=== PATIENT | male | born 1980 | race African-American/Black ===

== ENCOUNTER 2017-12-25 19:03 | Emergency (ER) | payer SELFPAY ==
[2017-12-25] MEDS ORDERED: DEXAMETHASONE SOD PHOS INJ 10 MG/1 ML VIAL IM ONE (19:27)
[2017-12-25] MEDS ORDERED: KETOROLAC TROMETHAMINE INJ/PF 30 MG/1 ML SDV IM ONE (19:27)
[2017-12-25] MEDS ORDERED: DIAZEPAM INJ 10 MG/2 ML DISP.SYRIN IM ONE (19:27)
--- NOTE | 2017-12-25 19:34 | ER Document Report ---
HPI - HPI Pain Level: 3 Notes: Patient is a 37-year-old male with no significant past medical history who presents to the ED complaining of left lower back pain times 2 days. Patient states that he feels like his back is tightened up and swollen the left lower side. Patient states that he did go to 2 days ago, but they did not tell a much of anything and sent him home with muscle relaxers. Patient states that he did have an x-ray at that time which was negative. 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 He has not had any injections or procedures to his back. Denies any IV drug use. He is eating and drinking without any difficulties. He is urinating normally and having normal bowel movements. Denies any drug allergies. Denies any headache , fever, head injury, neck pain, changes in vision/speech/mentation/hearing, URI , sore throat, chest pain, palpitations, syncope, cough, shortness of breath, wheeze, dyspnea, abdominal pain, nausea/vomiting/diarrhea, urinary retention, dysuria, hematuria, loss of control of bowel or bladder, numbness/tingling, saddle anesthesia, muscle paralysis/weakness, or rash. - ROS Systems Reviewed and Negative: Yes All other systems reviewed and negative Past Medical History - Social History Smoking Status: Current Every Day Smoker Family History: Reviewed & Not Pertinent Vertical Provider Document - CONSTITUTIONAL Agree With Documented VS: Yes Notes: PHYSICAL EXAMINATION: GENERAL: Well-appearing, well-nourished and in no acute distress. LUNGS: Breath sounds clear to auscultation bilaterally and equal. No wheezes rales or rhonchi. HEART: Regular rate and rhythm without murmurs, rubs, gallops. ABDOMEN: Soft, nontender, nondistended abdomen. No guarding, no rebound. No masses appreciated. Normal bowel sounds present. No CVA tenderness bilaterally. No pulsatile mass Musculoskeletal: LE's b/l: FROM to passive/active. Strength 5+/5. No deficits noted. No bony tenderness of extremities. Back: FROM to passive/active. Strength 5+/5. No vertebral point tenderness, stepoffs, or deformities. I was able to percuss the L-spine without any tenderness noted. No other bony tenderness, erythema, swelling, or ecchymosis. SLR negative b/l. + tenderness to the Lt L-paraspinal mm, correlates with pain described. + moderate spasming noted Lt L-paraspinal mm, correlates with pain described. No SI jt tenderness. No foot drop Extremities: No cyanosis, clubbing, or edema b/l. Peripheral pulses 2+. Capillary refill less than 2 seconds. NEUROLOGICAL: Normal speech, normal gait. Normal sensory, motor exams. Reflexes 2+ b/l. PSYCH: Normal mood, normal affect. SKIN: Warm, Dry, normal turgor, no rashes or lesions noted. - INFECTION CONTROL TRAVEL OUTSIDE OF THE [place] IN LAST 30 DAYS: No Course - Re-evaluation Re-evalutation: 12/25/17 19:31 Patient is an afebrile, well-hydrated, 37-year-old male who presents to the ED with left lower back pain and spasm noted to the L-paraspinal muscle on the left side. Vitals are acceptable without any significant tachycardia, tachypnea , or hypoxia. PE is otherwise unremarkable for any focal neurological deficits. I was able to percuss down the midline spine without any tenderness. No labs or imaging warranted at this time based on H&P. Patient had a recent negative x-ray through [facility] per patient. Patient was given Decadron, Toradol, and valium. He is nontoxic-appearing and is tolerating p.o. without difficulties. There are no signs of infection. No other red flag symptoms noted. No other labs or imaging warranted at this time based on H&P. Low suspicion for any meningitis, fracture, expanding/ruptured AAA, cauda equina syndrome, epidural mass lesion/abscess, herniated disc causing severe spinal stenosis, or other systemic infection at this time. Patient is aware that his condition can change from initial presentation and that he needs monitor symptoms closely for any acute changes. I will send him home with a prescription for baclofen and naproxen. Conservative measures otherwise for symptoms. Recheck with your PCM in 3-5 days. Consider consult with orthopedic/ physical therapy. Return to the ED with any worsening/concerning symptoms otherwise as reviewed discharge. Patient is in agreement. Discharge - Discharge Clinical Impression: Muscle spasm Low back pain Qualifiers: Chronicity: acute Back pain laterality: left Sciatica presence: without sciatica Qualified Code(s): M54.5 - Low back pain Condition: Stable Disposition: HOME, SELF-CARE Instructions: Low Back Pain ([facility]), Stretching Exercises for the Back ([facility]), Muscle Relaxers ([facility]) Additional Instructions: Rest, Ice Tylenol/ibuprofen as needed Light stretches daily Strength exercises as able Moist heat and massage may help F/u with your PCP in 3-5 days for a recheck Consider consult(s) with Orthopedics/physical therapy for ongoing/worsening symptoms Return to the ED with any worsening symptoms and/or development of fever, headache, chest pain, palpitations, syncope, shortness of breath, trouble breathing, abdominal pain, n/v/d, blood in stool/urine, loss of control of bowel /bladder, urinary retention, muscle weakness/paralysis, saddle anesthesia, numbness/tingling, or other worsening symptoms that are concerning to you. Prescriptions: Baclofen [Baclofen 10 mg Tablet] 5 - 10 mg PO BID PRN #15 tablet PRN Reason: Naproxen 500 mg PO BID PRN #30 tablet PRN Reason: Forms: Smoking Cessation Education, Return to Work, Elevated Blood Pressure Referrals: [facility] [Provider Group] - Follow up in 3-5 days
[2017-12-25 19:39] VITALS: BP 128/89
== END 2017-12-25 20:10 | disposition home or self-care (01) ==
LOC: ER 19:03
DX: M62.830 Muscle spasm of back (principal); M54.5 Low back pain; X50.3XXA Overexertion from repetitive movements, initial encounter; F17.200 Nicotine dependence, unspecified, uncomplicated
CPT/HCPCS: 99283; 96372; J3360; J1885; J1100

== ENCOUNTER 2018-07-16 22:45 | Emergency (ER) | payer SELFPAY ==
[2018-07-17] MEDS ORDERED: LIDOCAINE 2% VISCOUS SOLN 20 ML UDCUP PO ONE (03:12)
[2018-07-17] MEDS ORDERED: PENICILLIN V POTASSIUM 500 MG TABLET PO ONE (03:12)
--- NOTE | 2018-07-17 03:15 | ER Document Report ---
HPI - HPI Time Seen by Provider: 07/17/18 01:26 Pain Level: 3 Notes: Patient is a 38-year-old male who presents with chief complaint of dental pain to tooth #18. He reports that the tooth broke approximately 1 week ago and he has had pain and throbbing since then. He has been unable to follow-up with a dentist. - CONSTITUTIONAL Constitutional: DENIES: Fever, Chills Past Medical History - General Information source: Patient - Social History Smoking Status: Current Some Day Smoker Frequency of alcohol use: None Drug Abuse: None Family History: Reviewed & Not Pertinent Patient has suicidal ideation: No Patient has homicidal ideation: No - Medical History Medical History: Negative Renal/ Medical History: Denies: Hx Peritoneal Dialysis Surgical Hx: Negative - Immunizations Immunizations up to date: Yes Vertical Provider Document - CONSTITUTIONAL Notes: PHYSICAL EXAMINATION: GENERAL: Well-appearing, well-nourished and in no acute distress. HEAD: Atraumatic, normocephalic. EYES: Pupils equal round extraocular movements intact, conjunctiva are normal. ENT: Nares patent, broken tooth at tooth #18, mild surrounding erythema without drainable abscess. NECK: Normal range of motion LUNGS: No respiratory distress Musculoskeletal: Normal range of motion NEUROLOGICAL: Normal speech, normal gait. PSYCH: Normal mood, normal affect. SKIN: Warm, Dry, normal turgor, no rashes or lesions noted. - INFECTION CONTROL TRAVEL OUTSIDE OF THE [place] IN LAST 30 DAYS: No Course - Re-evaluation Re-evalutation: Patient's examination consistent with dental infection and fractured tooth. Patient will be started on penicillin VK and [facility] - Vital Signs Vital signs: Temp Pulse Resp BP Pulse Ox 98.5 F 92 18 136/89 H 100 07/16/18 23:13 07/16/18 23:13 07/16/18 23:13 07/16/18 23:13 07/16/18 23:13 Discharge - Discharge Clinical Impression: Pain, dental Fractured tooth, complicated Qualifiers: Encounter type: initial encounter Fracture type: closed Qualified Code(s): S02.5XXA - Fracture of tooth (traumatic), initial encounter for closed fracture Condition: Stable Disposition: HOME, SELF-CARE Additional Instructions: You have been seen for dental pain. It is very important that you follow-up with a dentist for definitive care. Please return if you develop fever greater than 101, swelling in your face, vomiting, difficulty breathing or swallowing, or any other symptoms that are concerning to you. For pain you should take ibuprofen 800 mg every 8 hours as needed. [facility] [phone] Please call Thursday morning to try to schedule an appointment. They do not do anything other than extractions. Prescriptions: Penicillin V Potassium [Penicillin Vk 500 mg Tablet] 500 mg PO BID #20 tablet Forms: Return to Work
[2018-07-17] MEDS ORDERED: HYDROCODONE/ACETAMINOPHEN 5-325 MG TABLET PO ONE (03:19)
[2018-07-17 04:26] VITALS: BP 136/79
== END 2018-07-17 03:50 | disposition home or self-care (01) ==
LOC: ER 22:45
DX: S02.5XXA Fracture of tooth (traumatic), initial encounter for closed fracture (principal); K08.89 Other specified disorders of teeth and supporting structures; X58.XXXA Exposure to other specified factors, initial encounter; F17.200 Nicotine dependence, unspecified, uncomplicated
CPT/HCPCS: 99282; J3490

== ENCOUNTER 2018-07-19 19:12 | Emergency (ER) | payer SELFPAY | END 2018-07-19 19:30 | disposition left against medical advice (07) | LOC: ER 19:12 | DX: Z53.21 Procedure and treatment not carried out due to patient leaving prior to being seen by health care provider (principal) ==

== ENCOUNTER 2018-10-18 15:53 | Emergency (ER) | payer SELFPAY ==
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
[2018-10-18 17:25] LABS: ABSOLUTE EOSINOPHILS # (AUTO) 0.2 10^3/uL (0.0-0.6); ABSOLUTE LYMPHOCYTES (AUTO) 1.7 10^3/uL (0.5-4.7); ABSOLUTE MONOCYTES (AUTO) 0.8 10^3/uL (0.1-1.4); ABSOLUTE NEUT (AUTO) 4.6 10^3/uL (1.7-8.2); BASOPHILS % (AUTO) 0.5 % (0-2); EOSINOPHILS % (AUTO) 2.9 % (0-6); HEMATOCRIT 43.6 % (37.9-51.0); HEMOGLOBIN 14.7 g/dL (13.5-17.0); LYMPHOCYTES % (AUTO) 23.3 % (13-45); MEAN CORPUSCULAR HEMOGLOBIN 31.7 pg (27.0-33.4); MEAN CORPUSCULAR HGB CONC 33.6 g/dL (32.0-36.0); MEAN CORPUSCULAR VOLUME 94 fl (80-97); MONOCYTES % (AUTO) 10.5 % (3-13); PLATELET COUNT 195 10^3/uL (150-450); RED BLOOD COUNT 4.62 10^6/uL (4.35-5.55); RED CELL DISTRIBUTION WIDTH 12.4 % (11.5-14.0); SEGMENTED NEUTROPHILS % (AUTO) 62.8 % (42-78); TOTAL CELLS COUNTED % (AUTO) 100 %; WHITE BLOOD COUNT 7.3 10^3/uL (4.0-10.5)
[2018-10-18 17:38] LABS: APPEARANCE,URINE SLIGHTLY-CLOUDY; BILIRUBIN,URINE NEGATIVE (NEGATIVE); GLUCOSE, URINE NEGATIVE (NEGATIVE); KETONES,URINE NEGATIVE (NEGATIVE); LEUKOCYTE ESTERASE,URINE NEGATIVE (NEGATIVE); NITRITE,URINE NEGATIVE (NEGATIVE); PROTEIN,URINE 30 mg/dL (NEGATIVE); URINE SPECIFIC GRAVITY 1.031
[2018-10-18 17:40] LABS: ACETAMINOPHEN < 10 ug/mL (10-30); ALANINE AMINOTRANSFERASE 34 U/L (21-72); ALBUMIN 3.8 g/dL (3.5-5.0); ALCOHOL < 10 mg/dL (NONE DETECTED); ALKALINE PHOSPHATASE 67 U/L (38-126); ANION GAP 9 (5-19); ASPARTATE AMINO TRANSFERASE 25 U/L (17-59); BILIRUBIN,DIRECT 0.2 mg/dL (0.0-0.4); BILIRUBIN,TOTAL 0.3 mg/dL (0.2-1.3); BLOOD UREA NITROGEN 9 mg/dL (7-20); CALCIUM 9.3 mg/dL (8.4-10.2); CARBON DIOXIDE 28 mmol/L (22-30); CHLORIDE 104 mmol/L (98-107); GLUCOSE 82 mg/dL (75-110); POTASSIUM 3.9 mmol/L (3.6-5.0); SALICYLATE < 1.0 mg/dL (2.0-20.0); SODIUM 140.7 mmol/L (137-145); TOTAL PROTEIN 6.8 g/dL (6.3-8.2)
[2018-10-18 17:43] LABS: COLOR,URINE YELLOW
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
[2018-10-18 17:50] LABS: URINE BARBITURATES SCREEN NEGATIVE; URINE BENZODIAZEPINES SCREEN NEGATIVE; URINE METHADONE SCREEN NEGATIVE
[2018-10-18 17:53] LABS: URINE PHENCYCLIDINE SCREEN NEGATIVE
[2018-10-18 18:20] LABS: URINE COCAINE SCREEN UNCONFIRMED POSITIVE
[2018-10-18 18:21] LABS: URINE MARIJUANA (THC) SCREEN UNCONFIRMED POSITIVE
--- NOTE | 2018-10-18 20:43 | EKG REPORT ---
SEVERITY:- NORMAL ECG - SINUS RHYTHM : Confirmed by: Margot Reed MD 18-Oct-2018 20:42:14
[2018-10-19 09:31] VITALS: BP 140/75
[2018-10-19] MEDS ORDERED: BUSPIRONE HCL 10 MG TABLET PO ONE (09:48)
[2018-10-19] MEDS ORDERED: VENLAFAXINE HCL 37.5 MG CAP.SR.24H PO ONE (09:48)
--- NOTE | 2018-10-19 09:59 | ER Document Report ---
Doctor's Note Notes: 10/19/18 09:58 Patient's records were reviewed. The patient has an appointment at the local [place] [facility] for 2:30 PM today. Per recommendations of the psychology department, he will be started on Effexor 37.5 mg daily, and BuSpar 10 mg twice daily. He will be given the first dose of each of those medications while here in the emergency room and a 7-day prescription in case his appointment today is only for therapy and he is unable to see a prescriber.
--- NOTE | 2018-10-19 10:50 | PSYCHOLOGICAL NOTE ---
Psych Note - Psych Note Date seen by psych provider: 10/19/18 Time seen by psych provider: 07:49 - Evaluation from [phone]. Contact with mother at 1038. Psych Note: Medication recommendations made by the psychiatric medical provider, Dr. Fernandes, includes: Add Effexor 37.5MG daily for depression/to curb cravings/increase energy Add Buspar 10MG twice a day for anxiety/calming effect/depression/sleep Impression/Plan: Patient is cleared from acute psychiatric services. He denied current SI, admitted to having previous thoughts, acknowledged these were related to depression/grief/drug use and [facility]. He denied HI and no observed psychosis. Scheduled [facility] for [facility] today (10/19/18) at 1430. Patient provided with outpatient MH resource sheet which documented contact information for [facility]appointment date and time, listed [facility] Crisis Hotline number and highlighted IFS MCM. Also provided outpatient resource information fro [facility]. Included dang raymond in plan of care and she agreed to pick patient up from the ED as well as take [facility] to 1430 [facility] Consulted with Dr. Vick regarding the management and care of patient. ED Physician in agreement with recommendations.
== END 2018-10-19 11:19 | disposition home or self-care (01) ==
LOC: ER 15:53
DX: F32.9 Major depressive disorder, single episode, unspecified (principal); R45.851 Suicidal ideations; F12.10 Cannabis abuse, uncomplicated; F14.10 Cocaine abuse, uncomplicated; F11.10 Opioid abuse, uncomplicated; F15.90 Other stimulant use, unspecified, uncomplicated; F17.210 Nicotine dependence, cigarettes, uncomplicated; Z71.6 Tobacco abuse counseling
CPT/HCPCS: 93005; 99406; 99285; 36415; 80307 ×4; 85025; 80053; 81001; 93010; J3490